=== PATIENT | female | born 1935 | race Caucasian/White ===

== ENCOUNTER 2017-10-11 07:07 | Inpatient (IN) | payer MEDICARE, OTHER ==
[2017-10-11] MEDS: KETOROLAC 15 MG INJ IV (08:07)
[2017-10-11 08:19] LABS: ADD MAN DIFF? NO
[2017-10-11 08:23] LABS: WHITE BLOOD COUNT 17.8 10^3/ul (4.8-10.8)
[2017-10-11 08:23] LABS: ABNORMAL IP MESSAGE 1; BASOPHILS % 0.2 % (0.0-2.0); EOSINOPHILS # 0.1 10^3/ul (0.0-0.5); EOSINOPHILS % 0.3 % (0.0-7.0); HEMATOCRIT 38.2 % (37.0-47.0); HEMOGLOBIN 13.1 g/dl (12.0-16.0); LYMPHOCYTES # 0.5 10^3/ul (0.8-2.9); LYMPHOCYTES % 2.9 % (15.0-51.0); MEAN CORPUSCULAR HEMOGLOBIN 36.5 pg (29.0-33.0); MEAN CORPUSCULAR HGB CONC 34.3 g/dl (32.0-37.0); MEAN CORPUSCULAR VOLUME 106.4 fl (82.0-101.0); MEAN PLATELET VOLUME 9.6 fl (7.4-10.4); MONOCYTE # 0.4 10^3/ul (0.3-0.9); NEUTROPHIL # 16.7 10^3/ul (1.6-7.5); NEUTROPHILS % 94.1 % (39.0-77.0); PLATELET COUNT 133 10^3/UL (140-415); RED BLOOD COUNT 3.59 10^6/ul (4.20-5.40); RED CELL DISTRIBUTION WIDTH 12.4 % (11.5-14.5)
[2017-10-11 08:28] LABS: POSITIVE DIFF @See below
[2017-10-11 08:40] LABS: ALANINE AMINOTRANSFERASE 47 IU/L (13-69); ALBUMIN 3.9 g/dl (3.3-4.9); ALKALINE PHOSPHATASE 98 IU/L (42-121); ANION GAP 15 (8-16); ASPARTATE AMINO TRANSFERASE 70 IU/L (15-46); BILIRUBIN,INDIRECT 1.2 mg/dl (0-1.1); BILIRUBIN,TOTAL 1.2 mg/dl (0.2-1.3); BLOOD UREA NITROGEN 7 mg/dl (7-20); CALCIUM 9.1 mg/dl (8.4-10.2); CARBON DIOXIDE 22 mmol/L (21-31); CHLORIDE 101 mmol/L (97-110); CREATININE 0.74 mg/dl (0.44-1.00); GLUCOSE 137 mg/dl (70-220); POTASSIUM 4.5 mmol/L (3.5-5.1); SODIUM 133 mmol/L (135-144); TOTAL PROTEIN 6.9 g/dl (6.1-8.1)
[2017-10-11] MEDS: CEFEPIME 2GM/50 ML (PMX) 50 ML IVPB (09:02)
[2017-10-11] MEDS: SODIUM CHLORIDE 0.9% 1L BAG IV* (09:02)
[2017-10-11] MEDS: ONDANSETRON 4 MG INJ IV (09:17)
[2017-10-11] MEDS: morphine 4 MG/ML VIAL IV (09:17)
[2017-10-11] MEDS: VANCOMYCIN 1 GM (PMX) 250 ML IVPB (09:17)
[2017-10-11 09:22] LABS: LACTIC ACID 1.8 mmol/L (0.5-2.0)
[2017-10-11 10:45] LABS: ADD UMIC NO; UR ASCORBIC ACID NEGATIVE (NEGATIVE); UR BILIRUBIN (Dip) NEGATIVE (NEGATIVE); UR BLOOD (Dip) NEGATIVE (NEGATIVE); UR CLARITY CLEAR (CLEAR); UR COLOR YELLOW (YELLOW); UR GLUCOSE (Dip) NEGATIVE (NEGATIVE); UR KETONES (Dip) NEGATIVE (NEGATIVE); UR LEUKOCYTE ESTERASE (Dip) NEGATIVE Leu/ul (NEGATIVE); UR NITRITE (Dip) NEGATIVE (NEGATIVE); UR TOTAL PROTEIN (Dip) NEGATIVE (NEGATIVE); UR UROBILINOGEN (Dip) NEGATIVE (NEGATIVE)
[2017-10-11 11:33] LABS: LACTIC ACID 1.4 mmol/L (0.5-2.0)
[2017-10-11 11:38] LABS: INR 1.07; PT RATIO 1.1
[2017-10-11 11:39] LABS: PARTIAL THROMBOPLASTIN TIME 28.7 Sec (25.0-35.0)
[2017-10-11] MEDS: LIDOCAINE 1% (MDV) 10 ML INJ INJ (11:39)
[2017-10-11 11:41] LABS: TROPONIN-I < 0.010 ng/ml (0.000-0.120)
[2017-10-11 12:53] LABS: SYN FLD MN % 4.6 &; SYN FLD PMN % 95.4 % (0.0-25.0)
[2017-10-11 13:00] LABS: SYN FLD WBC 61154 /cmm (0-150)
[2017-10-11 13:01] LABS: SYN FLD SOURCE RIGHT KNEE
[2017-10-11 13:01] LABS: SYN FLD CLARITY CLOUDY
[2017-10-11 13:10] LABS: SYN FLD CRYSTALS NO CRYSTALS SEEN (None seen)
[2017-10-11 13:14] LABS: SYN FLD COLOR YELLOW
[2017-10-11 13:34] LABS: LACTIC ACID 1.6 mmol/L (0.5-2.0)
[2017-10-11] MEDS ORDERED: ONDANSETRON 4 MG INJ IV (14:30)
[2017-10-11] MEDS ORDERED: ACETAMINOPHEN 325 MG TAB PO (14:30)
[2017-10-11] MEDS ORDERED: HYDROCODONE/APAP (5/325) TAB (17:51)
[2017-10-11] MEDS: HYDROCODONE/APAP (5/325) TAB PO (17:52)
[2017-10-11] MEDS ORDERED: VANCOMYCIN IV PER PHARMACY XX (18:00)
[2017-10-11] MEDS ORDERED: DIPHENHYDRAMINE 25 MG CAP PO (18:00)
[2017-10-11] MEDS ORDERED: NACL 0.9% 3 ML SYG IV (18:00)
[2017-10-11] MEDS ORDERED: ZOLPIDEM 5 MG TAB PO (18:00)
[2017-10-11] MEDS ORDERED: hydrOXYzine HCL 25 MG TAB PO (18:00)
[2017-10-11] MEDS ORDERED: DOCUSATE SODIUM 100 MG CAP PO (18:00)
[2017-10-11] MEDS: morphine 2 MG INJ IV (19:45)
[2017-10-11] MEDS: GABAPENTIN 300 MG CAP PO (20:35)
[2017-10-11] MEDS: VANCOMYCIN 500MG/NS (PMX) 100 ML IVPB (21:19)
[2017-10-12] MEDS: HYDROCODONE/APAP (5/325) TAB PO ×3 (00:31→15:40)
[2017-10-12] MEDS: morphine 2 MG INJ IV (02:39)
[2017-10-12] MEDS: PANTOPRAZOLE (EC) 40 MG TAB PO (05:45)
[2017-10-12 06:34] LABS: ADD MAN DIFF? NO
[2017-10-12 06:44] LABS: BASOPHILS % 0.3 % (0.0-2.0); EOSINOPHILS # 0.5 10^3/ul (0.0-0.5); EOSINOPHILS % 3.4 % (0.0-7.0); HEMATOCRIT 35.7 % (37.0-47.0); HEMOGLOBIN 12.2 g/dl (12.0-16.0); LYMPHOCYTES # 1.7 10^3/ul (0.8-2.9); LYMPHOCYTES % 12.9 % (15.0-51.0); MEAN CORPUSCULAR HGB CONC 34.2 g/dl (32.0-37.0); MEAN CORPUSCULAR VOLUME 108.2 fl (82.0-101.0); MONOCYTE # 0.4 10^3/ul (0.3-0.9); MONOCYTES % 3.2 % (0.0-11.0); NEUTROPHIL # 10.5 10^3/ul (1.6-7.5); NEUTROPHILS % 79.8 % (39.0-77.0); PLATELET COUNT 116 10^3/UL (140-415); RED CELL DISTRIBUTION WIDTH 12.6 % (11.5-14.5)
[2017-10-12 06:44] LABS: WHITE BLOOD COUNT 13.2 10^3/ul (4.8-10.8)
[2017-10-12 07:00] LABS: HEMOGLOBIN A1C 5.9 % (0-5.9)
[2017-10-12 07:27] LABS: ANION GAP 10 (8-16); BLOOD UREA NITROGEN 3 mg/dl (7-20); CALCIUM 8.1 mg/dl (8.4-10.2); CARBON DIOXIDE 24 mmol/L (21-31); CHLORIDE 107 mmol/L (97-110); CREATININE 0.63 mg/dl (0.44-1.00); GLUCOSE 99 mg/dl (70-220); MAGNESIUM 1.8 mg/dl (1.7-2.5); PHOSPHORUS 3.3 mg/dl (2.5-4.9); POTASSIUM 4.2 mmol/L (3.5-5.1); SODIUM 137 mmol/L (135-144)
[2017-10-12] MEDS ORDERED: NON-FORMULARY/PATIENT OWN MED (Esomeprazole Mag Trihydrate (Nexium) 40 MG) PO (09:00)
[2017-10-12] MEDS ORDERED: NON-FORMULARY/PATIENT OWN MED (Calcium Citrate/Vitamin D (Citracal-Vitamin D 200 MG-250) 1 PO (09:00)
[2017-10-12] MEDS ORDERED: NON-FORMULARY/PATIENT OWN MED (Ergocalciferol (Vitamin D2) (Vitamin D2) 2,000 UNIT) PO (09:00)
[2017-10-12] MEDS: VANCOMYCIN 500MG/NS (PMX) 100 ML IVPB ×2 (09:52→22:29)
[2017-10-12] MEDS: BENAZEPRIL 10 MG TAB PO (09:53)
[2017-10-12] MEDS: GABAPENTIN 300 MG CAP PO ×2 (09:53→20:50)
[2017-10-12] MEDS: MULTIVITAMINS THERAPEUTIC TAB PO (09:53)
[2017-10-12] MEDS: CHOLECALCIFEROL 2,000 UNIT CAP PO (09:53)
[2017-10-12] MEDS: ATENOLOL 50 MG TAB PO (09:53)
[2017-10-12] MEDS: FOLIC ACID 1 MG TAB PO (09:54)
[2017-10-12] MEDS: CALCIUM/VITAMIN D (500/200) TAB PO (09:54)
[2017-10-12] MEDS: ENOXAPARIN 40 MG/0.4 ML SYG SC (09:56)
[2017-10-12] MEDS ORDERED: CEFTRIAXONE 1 GM/50 ML (PMX) 50 ML IVPB (15:00)
[2017-10-12] MEDS: CEFTRIAXONE 2 GM/50 ML (PMX) 50 ML IVPB (15:40)
[2017-10-12] MEDS ORDERED: BUPIVACAINE 0.5%/EPI (SDV) 30 ML INJ INJ (16:00)
[2017-10-12] MEDS ORDERED: BETAMET NA PHOS/AC(6 MG/ML) 5ML INJ IU (16:00)
[2017-10-12 21:43] LABS: VANCOMYCIN,TROUGH 9.5 ug/ml (10.0-20.0)
[2017-10-13] MEDS: PANTOPRAZOLE (EC) 40 MG TAB PO (05:42)
[2017-10-13] MEDS: HYDROCODONE/APAP (5/325) TAB PO ×2 (05:44→14:12)
[2017-10-13] MEDS: FOLIC ACID 1 MG TAB PO (08:52)
[2017-10-13] MEDS: VANCOMYCIN 750 MG in SOD CHLORIDE 0.9% 150 ML IVPB ×2 (08:52→21:03)
[2017-10-13] MEDS: GABAPENTIN 300 MG CAP PO ×2 (08:52→21:03)
[2017-10-13] MEDS: CHOLECALCIFEROL 2,000 UNIT CAP PO (08:52)
[2017-10-13] MEDS: CALCIUM/VITAMIN D (500/200) TAB PO (08:52)
[2017-10-13] MEDS: MULTIVITAMINS THERAPEUTIC TAB PO (08:52)
[2017-10-13] MEDS: ATENOLOL 50 MG TAB PO (08:53)
[2017-10-13] MEDS: BENAZEPRIL 10 MG TAB PO (08:53)
[2017-10-13] MEDS: ENOXAPARIN 40 MG/0.4 ML SYG SC (08:56)
[2017-10-13] MEDS: CEFTRIAXONE 2 GM/50 ML (PMX) 50 ML IVPB (15:44)
[2017-10-13] MEDS ORDERED: BETAMET NA PHOS/AC(6 MG/ML) 5ML INJ IU (16:30)
[2017-10-13] MEDS ORDERED: BUPIVACAINE 0.5%/EPI (SDV) 30 ML INJ INJ (16:30)
[2017-10-13] MEDS: hydrALAzine 20 MG INJ IV (21:20)
[2017-10-13] MEDS: ACETAMINOPHEN 325 MG TAB PO (22:46)
[2017-10-14 05:51] LABS: ADD MAN DIFF? NO
[2017-10-14] MEDS: PANTOPRAZOLE (EC) 40 MG TAB PO (05:53)
[2017-10-14 05:58] LABS: WHITE BLOOD COUNT 6.7 10^3/ul (4.8-10.8)
[2017-10-14 05:58] LABS: BASOPHILS % 0.6 % (0.0-2.0); EOSINOPHILS # 0.6 10^3/ul (0.0-0.5); EOSINOPHILS % 8.6 % (0.0-7.0); HEMATOCRIT 37.3 % (37.0-47.0); LYMPHOCYTES # 1.6 10^3/ul (0.8-2.9); LYMPHOCYTES % 23.5 % (15.0-51.0); MEAN CORPUSCULAR HEMOGLOBIN 36.9 pg (29.0-33.0); MEAN CORPUSCULAR HGB CONC 34.9 g/dl (32.0-37.0); MEAN PLATELET VOLUME 10.2 fl (7.4-10.4); MONOCYTE # 0.6 10^3/ul (0.3-0.9); MONOCYTES % 9.5 % (0.0-11.0); NEUTROPHIL # 3.8 10^3/ul (1.6-7.5); NEUTROPHILS % 57.3 % (39.0-77.0); NUCLEATED RED BLOOD CELLS% 0.3 /100WBC (0.0-0.0); PLATELET COUNT 123 10^3/UL (140-415); RED BLOOD COUNT 3.52 10^6/ul (4.20-5.40); RED CELL DISTRIBUTION WIDTH 12.3 % (11.5-14.5)
[2017-10-14] MEDS: HYDROCODONE/APAP (5/325) TAB PO ×2 (05:59→22:50)
[2017-10-14 06:37] LABS: ALANINE AMINOTRANSFERASE 39 IU/L (13-69); ALBUMIN 3.4 g/dl (3.3-4.9); ALBUMIN/GLOBULIN RATIO 1.17; ALKALINE PHOSPHATASE 81 IU/L (42-121); ANION GAP 9 (8-16); ASPARTATE AMINO TRANSFERASE 37 IU/L (15-46); BILIRUBIN,INDIRECT 0.5 mg/dl (0-1.1); BILIRUBIN,TOTAL 0.5 mg/dl (0.2-1.3); CALCIUM 8.9 mg/dl (8.4-10.2); CARBON DIOXIDE 26 mmol/L (21-31); CHLORIDE 107 mmol/L (97-110); GLUCOSE 116 mg/dl (70-220); POTASSIUM 4.1 mmol/L (3.5-5.1); SODIUM 138 mmol/L (135-144); TOTAL PROTEIN 6.3 g/dl (6.1-8.1)
[2017-10-14 07:55] LABS: ERYTHROCYTE SEDIMENTATION RATE 13 mm/Hr (0-30)
[2017-10-14 08:18] LABS: BLOOD UREA NITROGEN 6 mg/dl (7-20)
[2017-10-14] MEDS: CHOLECALCIFEROL 2,000 UNIT CAP PO (08:52)
[2017-10-14] MEDS: CALCIUM/VITAMIN D (500/200) TAB PO (08:53)
[2017-10-14] MEDS: MULTIVITAMINS THERAPEUTIC TAB PO (08:53)
[2017-10-14] MEDS: GABAPENTIN 300 MG CAP PO ×2 (08:53→20:03)
[2017-10-14] MEDS: ENOXAPARIN 40 MG/0.4 ML SYG SC (08:54)
[2017-10-14] MEDS: FOLIC ACID 1 MG TAB PO (08:54)
[2017-10-14] MEDS: BENAZEPRIL 10 MG TAB PO (08:56)
[2017-10-14] MEDS: ATENOLOL 50 MG TAB PO (08:56)
[2017-10-14] MEDS: BUPIVACAINE 0.5%/EPI (SDV) 30 ML INJ INJ (16:37)
[2017-10-14] MEDS: BETAMET NA PHOS/AC(6 MG/ML) 5ML INJ IU (16:37)
[2017-10-14] MEDS: hydrALAzine 20 MG INJ IV (20:04)
[2017-10-15] MEDS: ACETAMINOPHEN 325 MG TAB PO ×2 (00:51→09:02)
[2017-10-15] MEDS: hydrALAzine 20 MG INJ IV (00:54)
[2017-10-15] MEDS: HYDROCODONE/APAP (5/325) TAB PO (04:52)
[2017-10-15] MEDS: ONDANSETRON 4 MG INJ IV (05:35)
[2017-10-15 07:02] LABS: ADD MAN DIFF? NO
[2017-10-15] MEDS: PANTOPRAZOLE (EC) 40 MG TAB PO (07:02)
[2017-10-15 07:07] LABS: BASOPHILS % 0.2 % (0.0-2.0); HEMATOCRIT 39.8 % (37.0-47.0); HEMOGLOBIN 13.8 g/dl (12.0-16.0); LYMPHOCYTES # 1.1 10^3/ul (0.8-2.9); LYMPHOCYTES % 11.7 % (15.0-51.0); MEAN CORPUSCULAR HEMOGLOBIN 35.8 pg (29.0-33.0); MEAN CORPUSCULAR HGB CONC 34.7 g/dl (32.0-37.0); MEAN CORPUSCULAR VOLUME 103.4 fl (82.0-101.0); MEAN PLATELET VOLUME 10.2 fl (7.4-10.4); MONOCYTE # 0.1 10^3/ul (0.3-0.9); MONOCYTES % 1.4 % (0.0-11.0); NEUTROPHIL # 7.9 10^3/ul (1.6-7.5); NEUTROPHILS % 84.9 % (39.0-77.0); NUCLEATED RED BLOOD CELLS% 0.2 /100WBC (0.0-0.0); PLATELET COUNT 140 10^3/UL (140-415); RED BLOOD COUNT 3.85 10^6/ul (4.20-5.40); RED CELL DISTRIBUTION WIDTH 12.4 % (11.5-14.5)
[2017-10-15 07:07] LABS: WHITE BLOOD COUNT 9.3 10^3/ul (4.8-10.8)
[2017-10-15] MEDS: FOLIC ACID 1 MG TAB PO (09:03)
[2017-10-15] MEDS: CALCIUM/VITAMIN D (500/200) TAB PO (09:03)
[2017-10-15] MEDS: MULTIVITAMINS THERAPEUTIC TAB PO (09:03)
[2017-10-15] MEDS: BENAZEPRIL 10 MG TAB PO (09:03)
[2017-10-15] MEDS: CHOLECALCIFEROL 2,000 UNIT CAP PO (09:03)
[2017-10-15] MEDS: GABAPENTIN 300 MG CAP PO (09:03)
[2017-10-15] MEDS: ATENOLOL 50 MG TAB PO (09:03)
[2017-10-15] MEDS: ENOXAPARIN 40 MG/0.4 ML SYG SC (09:04)
[2017-10-18 13:26] LABS: PROCALCITONIN <0.10 ng/mL (<0.10)
== END 2017-10-15 17:00 | disposition home or self-care (01) | DRG 554 ==
LOC: E/R 07:07 → PP2 14:05
PROC: 0S9C3ZX Drainage of Right Knee Joint, Percutaneous Approach, Diagnostic (ICD-10-PCS; principal; 2017-10-11)
DX: M06.4 Inflammatory polyarthropathy (principal); M06.9 Rheumatoid arthritis, unspecified; G89.29 Other chronic pain; I10 Essential (primary) hypertension; Z96.652 Presence of left artificial knee joint; K21.9 Gastro-esophageal reflux disease without esophagitis; M25.461 Effusion, right knee; R76.11 Nonspecific reaction to tuberculin skin test without active tuberculosis
CPT/HCPCS: 36415; 71045; 73562; 80048; 80053; 80202; 81003; 83036; 83605; 83735; 84100; 84145; 84484; 85025; 85610; 85651; 85730; 87040; 87070; 87086; 89060; 93005; 96374; 96375; 97161; 99285-25

== ENCOUNTER 2018-06-10 11:14 | Day surgery (SDC) | payer MEDICARE, OTHER ==
[2018-06-10] MEDS ORDERED: PROPOFOL 20 ML (13:11)
[2018-06-10] MEDS ORDERED: LIDOCAINE 2% (SDV) 5 ML INJ (13:11)
[2018-06-10] MEDS ORDERED: ONDANSETRON 4 MG INJ IV (13:30)
[2018-06-10] MEDS ORDERED: HYDROmorphONE 1 MG/5 ML IV SYRINGE IV (13:30)
== END 2018-06-10 16:42 | disposition home or self-care (01) ==
LOC: GIL 11:14
DX: K44.9 Diaphragmatic hernia without obstruction or gangrene (principal); K21.0 Gastro-esophageal reflux disease with esophagitis; I10 Essential (primary) hypertension; E66.9 Obesity, unspecified; Z68.35 Body mass index [BMI] 35.0-35.9, adult; M06.9 Rheumatoid arthritis, unspecified
CPT/HCPCS: 43239; 88305; 88312